=== PATIENT | female | born 1970 | race Caucasian/White ===

== ENCOUNTER 2017-12-09 08:40 | Emergency (ER) | payer OTHER ==
[2017-12-09] MEDS ORDERED: ALPRAZolam TAB* 0.5 MG PO ONE (09:22)
[2017-12-09 09:54] LABS: ABS Basophils 0 10^3/ul (0-0.2); ABS Eosinophils 0 10^3/ul (0-0.6); ABS Lymphocytes 1.1 10^3/ul (1.0-4.8); ABS Monocytes 0.8 10^3/ul (0-0.8); ABS Neutrophils 8.2 10^3/ul (1.5-7.7); ABS Nucleated RBC 0 10^3/ul; Eosinophil % 0.3 % (0-6); Hematocrit 42 % (35-47); Lymphocyte % 10.5 % (25-47); Mean Corpuscular HGB Conc 33 g/dl (31-36); Mean Corpuscular Hemoglobin 29 pg (27-31); Mean Corpuscular Volume 87 fL (80-97); Mean Platelet Volume 8.3 um3 (7.4-10.4); Nucleated Red Blood Cells % 0; Platelet Count 209 10^3/ul (150-450); Red Blood Count 4.86 10^6/ul (4.00-5.40); Red Cell Distribution Width 13 % (10.5-15); White Blood Count 10.1 10^3/ul (3.5-10.8)
[2017-12-09 10:11] LABS: EGFR Non-African American 95.6 (>60)
[2017-12-09 13:33] VITALS: BP 117/76
--- NOTE | 2017-12-09 14:14 | ED ---
James Holly Jacob, scribed for Nikunj Santiago MD on 12/09/17 at 1207 . Progress - Progress Note Progress Note: Pt was originally seen by Jayla Mackey. Care was changed to Dr. Santiago as she needs MHE. She reports no SI but is feeling overwhelmed and profoundly depressed. Course/Dx - Course Course Of Treatment: Pt was originally seen by Jayla Mackey. Care was changed to Dr. Santiago as she needs MHE. She reports no SI but is feeling overwhelmed and profoundly depressed. Upon completion of MHE and consultation with Dr. Bennett, it has been determined that the Pt can be discharged to home w/ generalized anxiety disorder. - Diagnoses Provider Diagnoses: Generalized anxiety disorder Discharge - Sign-Out/Discharge Documenting (check all that apply): Discharge/Admit/Transfer - discharge - Discharge Plan Condition: Stable Disposition: HOME Referrals: Jesus Solis MD [Primary Care Provider] - The documentation as recorded by the James atkinson Jacob accurately reflects the service I personally performed and the decisions made by , Nikunj Santiago MD.
--- NOTE | 2017-12-11 06:13 | ED ---
Psychiatric Complaint - HPI Summary HPI Summary: Patient is a 47-year-old female presenting to the ED with worsening anxiety over the past month. She was switched from her Zoloft to Lexapro and continues to be on her 3 a day Xanax. She states she awakes every morning at approximately 4:30 AM with severe anxiety. 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 She denies any health complaints. - History Of Current Complaint Chief Complaint: EDMentalHealth Time Seen by Provider: 12/09/17 08:45 Hx Obtained From: Patient ?: No Onset/Duration: Sudden Onset Timing: Constant Severity Initially: Moderate Severity Currently: Moderate Character: Anxious Aggravating Factor(s): Nothing Alleviating Factor(s): Nothing Associated Signs And Symptoms: Positive: Negative Related History: Positive For: Prior Psychiatric Issues - ANXIETY Has Suicidal: Reports: Thoughts - Allergies/Home Medications Allergies/Adverse Reactions: Allergies Allergy/AdvReac Type Severity Reaction Status Date / Time MS Penicillin G Allergy Rash Verified 05/19/12 18:17 [Penicillin G] Home Medications: Home Medications ALPRAZolam TAB* [Xanax TAB*] 0.25 mg PO TID PRN 12/09/17 [History Confirmed ] Ondansetron TAB* [Zofran 4 MG Tab*] 4 mg PO Q6H PRN 12/09/17 [History Confirmed 12/09/17] Sertraline* [Zoloft*] 100 mg PO DAILY 12/09/17 [History Confirmed 12/09/17] PMH/Surg Hx/FS Hx/Imm Hx Previously Healthy: Yes Endocrine/Hematology History: Denies: Hx Diabetes, Hx Systemic Lupus Erythematosus Cardiovascular History: Denies: Hx Congestive Heart Failure, Hx Hypertension History: Denies: Hx Dialysis, Hx Renal Disease Musculoskeletal History: Denies: Hx Rheumatoid Arthritis Psychiatric History: Reports: Hx Anxiety Denies: Hx of Violent Episodes Against Others - Cancer History Hx Chemotherapy: No Hx Radiation Therapy: No - Surgical History Surgery Procedure, Year, and Place: HYSTERECTOMY 2012 @ [facility]; MYOMECTOMY 1999 @ [facility] [place]; APPY 3 MONTHS BEFORE HYSTERECTOMY 2012 @ [facility] [place].; - Immunization History Hx Pertussis Vaccination: No Immunizations Up to Date: No Infectious Disease History: No Infectious Disease History: Denies: Traveled Outside the [place] in Last 30 Days - Social History Occupation: Employed Full-time Lives: With Family Alcohol Use: Rare Hx Substance Use: No Substance Use Type: Reports: None Hx Tobacco Use: No Review of Systems Constitutional: Negative Negative: Fever, Chills, Fatigue, Skin Diaphoresis Negative: Palpitations, Chest Pain Genitourinary: Negative Positive: no symptoms reported, see HPI Negative: Arthralgia, Myalgia Negative: Headache, Weakness Positive: Anxious All Other Systems Reviewed And Are Negative: Yes Physical Exam Triage Information Reviewed: Yes Vital Signs On Initial Exam: Initial Vitals Temp Pulse Resp BP Pulse Ox 97.9 F 69 18 141/80 97 12/09/17 08:44 12/09/17 08:44 12/09/17 08:44 12/09/17 08:44 12/09/17 08:44 Vital Signs Reviewed: Yes Appearance: Positive: Well-Appearing, No Pain Distress Skin: Positive: Skin Color Reflects Adequate Perfusion Head/Face: Positive: Normal Head/Face Inspection Neck: Positive: No Lymphadenopathy Respiratory/Lung Sounds: Positive: Clear to Auscultation Cardiovascular: Positive: RRR, Pulses are Symmetrical in both Upper and Lower Extremities Musculoskeletal: Positive: Normal, Strength/ROM Intact Neurological: Positive: Sensory/Motor Intact, Speech Normal Psychiatric: Positive: Anxious Diagnostics - Vital Signs Vital Signs Temp Pulse Resp BP Pulse Ox 12/09/17 13:51 98.4 F 64 16 117/76 98 12/09/17 13:32 98.4 F 64 16 117/76 98 12/09/17 10:43 98.4 F 62 16 117/74 98 12/09/17 09:26 18 12/09/17 08:44 97.9 F 69 18 141/80 97 - Laboratory Lab Results: Lab Results 12/09/17 12/09/17 Range/Units 09:48 09:48 WBC 10.1 (3.5-10.8) 10^3/ul RBC 4.86 (4.00-5.40) 10^6/ul Hgb 14.0 (12.0-16.0) g/dl Hct 42 (35-47) % MCV 87 (80-97) fL MCH 29 (27-31) pg MCHC 33 (31-36) g/dl RDW 13 (10.5-15) % Plt Count 209 (150-450) 10^3/ul MPV 8.3 (7.4-10.4) um3 Neut % (Auto) 81.2 (38-83) % Lymph % (Auto) 10.5 L (25-47) % Antelope % (Auto) 7.6 H (0-7) % Eos % (Auto) 0.3 (0-6) % Baso % (Auto) 0.4 (0-2) % Absolute Neuts (auto) 8.2 H (1.5-7.7) 10^3/ul Absolute Lymphs (auto) 1.1 (1.0-4.8) 10^3/ul Absolute Monos (auto) 0.8 (0-0.8) 10^3/ul Absolute Eos (auto) 0 (0-0.6) 10^3/ul Absolute Basos (auto) 0 (0-0.2) 10^3/ul Absolute Nucleated RBC 0 10^3/ul Nucleated RBC % 0 Sodium 138 (135-145) mmol/L Potassium 4.0 (3.5-5.0) mmol/L Chloride 105 (101-111) mmol/L Carbon Dioxide 25 (22-32) mmol/L Anion Gap 8 (2-11) mmol/L BUN 8 (6-24) mg/dL Creatinine 0.66 (0.51-0.95) mg/dL Est GFR ( Amer) 115.7 (>60) Est GFR (Non-Af Amer) 95.6 (>60) BUN/Creatinine Ratio 12.1 (8-20) Glucose 101 H (70-100) mg/dL Calcium 9.1 (8.6-10.3) mg/dL Total Bilirubin 0.50 (0.2-1.0) mg/dL AST 18 (13-39) U/L ALT 27 (7-52) U/L Alkaline Phosphatase 65 (34-104) U/L Total Protein 6.7 (6.4-8.9) g/dL Albumin 3.8 (3.2-5.2) g/dL Globulin 2.9 (2-4) g/dL Albumin/Globulin Ratio 1.3 (1-3) TSH 0.58 (0.34-5.60) mcIU/mL Salicylates < 2.50 (<30) mg/dL Acetaminophen < 15 mcg/mL Serum Alcohol < 10 (<10) mg/dL Result Diagrams: 12/09/17 09:48 12/09/17 09:48 Lab Statement: Any lab studies that have been ordered have been reviewed, and results considered in the medical decision making process. Course/Dx - Course Course Of Treatment: Pt was originally seen by Jayla Mackey. Care was changed to Dr. Santiago as she needs MHE. She reports no SI but is feeling overwhelmed and profoundly depressed. Upon completion of MHE and consultation with Dr. Bennett, it has been determined that the Pt can be discharged to home w/ generalized anxiety disorder. - Differential Dx/Clinical Impression Provider Diagnosis: Generalized anxiety disorder Discharge - Sign-Out/Discharge Documenting (check all that apply): Discharge/Admit/Transfer - Discharge Plan Condition: Stable Disposition: HOME Referrals: Jesus Solis MD [Primary Care Provider] - - Billing Disposition and Condition Condition: STABLE Disposition: Home
== END 2017-12-09 13:51 | disposition home or self-care (01) ==
LOC: ED 08:40
DX: F41.1 Generalized anxiety disorder (principal); Z79.899 Other long term (current) drug therapy; Z88.0 Allergy status to penicillin
CPT/HCPCS: 36415; 80053; 80320; 80329; 84443; 85025; 99284; A9270-GY; G0480

== ENCOUNTER → 2018-07-05 05:40 | Day surgery (SDC) | payer OTHER ==
--- NOTE | 2018-06-16 07:45 | HP ---
CC: Dr. Jesus Solis * ADMISSION HISTORY AND PHYSICAL: DATE OF ADMISSION: 07/05/18 ATTENDING SURGEON: Dr. Vipin Goncalves.* (DICTATED BY MEGGAN RODRIGUEZ) CHIEF COMPLAINT: Left flank mass. HISTORY OF PRESENT ILLNESS: This is a 48-year-old female who at least for the past 3 years has noted the presence of a lump in her left side that has not really bothered her until of late. In recent months, she has been exercising more, and with that increased activity, she has noticed some tenderness in the area of the lump. It had been previously evaluated by CT on 01/16/15, which showed a 3 x 1.9 x 1.4 cm mass at the anterior margin of the left external oblique muscle and was described as being isodense radiologically with the surrounding muscle tissue. A fine needle aspiration biopsy was performed on 03/27 showing benign fatty and fibrous tissue. The patient states that she has not noted any particular increase in size of the lump since then but only the associated discomfort. She was seen in the office by Dr. Goncalves on 05/18/18, at which time exam confirmed the presence of a 2-cm palpable nonmobile mass in the left upper quadrant extending towards the flank. There were adjacent laparoscopic/robotic port sites, but these were all subsequent to the initial presentation of the lesion. Dr. Goncalves has reviewed with her the recommendation , which is for excision of the lesion as it has become symptomatic. The patient understands the indications, risks, benefits, and alternatives and would like to proceed as scheduled with excision of left flank mass. PAST MEDICAL HISTORY: Anxiety, obesity, uterine fibroids. PAST SURGICAL HISTORY: Previous surgeries include open myomectomy in 1999 and then a subsequent subtotal hysterectomy (uterus only) in 2013, also for fibroid disease, that surgery was performed as a robotic laparoscopic procedure. She also underwent laparoscopic appendectomy in 2012. CURRENT MEDICATIONS: 1. Sertraline 100 mg once daily. 2. Multivitamin once daily. 3. Vitamin D 62808 Internation Units once daily. ALLERGIES: PENICILLIN and AMOXICILLIN, both caused rash. FAMILY HISTORY: Negative for anesthesia problems, bleeding or clotting disorders. SOCIAL HISTORY: The patient is and has children. 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 She is a former smoker of 4 to 5 cigarettes per day between the ages of 18 and 27, but then quit at age 27. She denies use of alcohol or other recreational drugs. REVIEW OF SYSTEMS: General: No recent constitutional symptoms. She did go through a period of significant anxiety this past summer with a resultant 40- pound weight loss which she states has leveled off. She is trying to maintain that currently. HEENT: No problems reported. Cardiovascular: No chest pain, palpitations, history of heart murmur, or hypertension. Respiratory: No history of asthma, chronic cough, or shortness of breath. GI: No problems reported. She has not yet had screening colonoscopy. : No problems reported. 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 No interval problems reported. Neuro/psych: Currently doing well on sertraline as prescribed. Remainder of review of systems is negative. PHYSICAL EXAMINATION GENERAL: Well-nourished, well developed female in no acute distress. SKIN: Warm and dry, no suspicious rashes or lesions. See also below for abdomen. VITAL SIGNS: Height 5 feet 9 inches, weight 184 pounds, blood pressure 102/68, pulse 78, respirations 18. HEENT: Pupils equal and round, reactive. EOMs intact. No conjunctival pallor. Oropharynx, teeth in good repair. No intraoral lesions. NECK: No lymphadenopathy, thyromegaly or masses. LUNGS: Clear to auscultation. No rales or wheezes. HEART: Regular rate and rhythm. No murmur noted. BREASTS: Not examined. ABDOMEN: Multiple well-healed laparoscopic/robotic port sites. Soft, nontender to palpation. There is a palpable mass in the left flank, which is nontender to palpation measured approximately 2 cm in diameter. No other palpable masses or organomegaly. GENITALIA/RECTAL: Not done. BACK: No spinous processes or CVA tenderness. EXTREMITIES: No edema. NEUROLOGIC: Grossly intact. IMPRESSION: Left flank mass. PLAN/RECOMMENDATIONS: Excision, left flank mass. MEGGAN RODRIGUEZ [id number]/[facility] #: [id number] [facility]
[~2018-07-05 05:40] MED LIST: Acetaminophen TAB* 325 MG PO PRN; Buffered Lidocaine 1% SYRIN* 1 ML/SYRINGE INTRADERM ONE; Bupivacaine 0.5% W/EPI SDV* 30 ML VIAL ONE; Dexamethasone IV* 4 MG/ML 1 ML (4 MG) IV SLOW PU ONE; Dexamethasone IV* 4 MG/ML 1 ML (4 MG) ONE; Famotidine IV* 10 MG/ML 2 ML (20 mg) IV ONE; Famotidine IV* 10 MG/ML 2 ML (20 mg) ONE; HYDROcodone/ACETAMIN 5-325 MG* 1 TAB PO PRN; Ketorolac INJ* 30 MG/ML 1 ML VIAL IV PRN; Lactated Ringers 1000 ML Bag* 1,000 ML IV SCH; Lidocaine 1% INJ* 10 MG/ML 30 ML SDV ONE; Midazolam* 1 MG/ML 2 ML VIAL (2 MG) ONE; Naloxone* 0.4 MG/ML 1 ML VIAL IV PRN; Ondansetron INJ* 2 MG/ML VIAL IV PRN; Propofol* 10 MG/ML 20 ML BTL ONE; fentaNYL* 50 MCG/ML 2 ML VIAL (100 MCG VIAL) IV PRN; fentaNYL* 50 MCG/ML 2 ML VIAL (100 MCG VIAL) ONE
--- NOTE | 2018-07-05 10:35 | OP ---
CC: Dr. Jesus Solis; [facility]. * DATE OF OPERATION: 07/05/18 - [facility] DATE OF : 68 SURGEON: Vipin Goncalves MD. VENEER TAPING MACHINE OFFBEARER: Alfie. ANESTHESIOLOGIST: Dr. Brothers. ANESTHESIA: Local, MAC. PRE-OP DIAGNOSIS: Left flank mass. POST-OP DIAGNOSIS: Left flank mass. OPERATIVE PROCEDURE: Excision of left flank intramuscular mass. ESTIMATED BLOOD LOSS: Minimal. FLUIDS: Crystalloid fluid given. SPECIMEN: Intramuscular left flank mass. DRAINS: None. COUNTS: Lap pad count and instrument count correct at the end of the procedure. DESCRIPTION OF PROCEDURE: The patient was identified in the preoperative area. The mass was identified with the patient's help and I marked her flank and abdomen on the left. She was then taken to the operating room and placed on the operating table in supine position. Sequential devices were placed on bilateral lower extremities. No antibiotics were given. Gentle sedation was given and the patient's abdomen and flank were prepped and draped in standard surgical fashion and time-out was performed. A transverse incision was made. This was deepened down to the subcutaneous tissues down on to the lesion which encompassed the fascia laterally. We made flaps throughout to identify intact fascia medially and distally, both superior and inferiorly. The lesion itself was soft and appeared benign. We then made a decision to take the mass with a portion of the anterior fascia. This was overlying the oblique musculature. The fascia was incised and the mass was help up with Yeni clamps. We were able to dissect this from both musculature and intramuscular fat tissues making planes easily until we had the lesion up into the incision site. Additional fascia was incised laterally and the specimen was marked and passed off. Irrigation was then carried. Hemostasis was achieved and then the fascia overlying this external oblique was reapproximated at the apices, but I could not re-approximate at the mid portion as there was a defect of approximately 3 cm. The incision was then closed with 3-0 Vicryl sutures and followed by 4-0 Monocryl subcuticular sutures. Steri-Strips and sterile dressing was applied. The patient tolerated the procedure well, was transferred to the PACU in stable condition. [id number]/[facility] #: [id number] [facility]
[2018-07-11 13:32] VITALS: BP 114/72
== END | disposition home or self-care (01) ==
LOC: OR 05:40
PROVIDERS: ATTEND Surgery
DX: N80.8 Other endometriosis (principal); Z88.0 Allergy status to penicillin; F41.9 Anxiety disorder, unspecified
CPT/HCPCS: 88305; J1100; J2250; J2704; J3010